=== PATIENT | female | born 1965 | race American Indian/Alaskan Native ===

== ENCOUNTER 2017-06-07 13:13 | Emergency (ER) | payer SELFPAY ==
[2017-06-07 13:39] LABS: Basophils % (Auto) 0.5 % (0.0-1.8); Eosinophils % (Auto) 1.7 % (0.0-4.3); Hematocrit 40.5 % (30.3-42.9); Mean Corpuscular HGB Conc 32 % (30-34); Mean Corpuscular Hemoglobin 29 pg (28-32); Mean Corpuscular Volume 89 fl (79-97); Platelet Count 181 K/mm3 (140-440); Red Blood Count 4.54 M/mm3 (3.65-5.03); Red Cell Distribution Width 13.5 % (13.2-15.2); White Blood Count 5.7 K/mm3 (4.5-11.0)
[2017-06-07 13:49] LABS: INR 0.89 (0.87-1.13)
[2017-06-07 13:50] LABS: Partial Thromboplastin Time 31.9 Sec. (24.2-36.6)
[2017-06-07 13:53] LABS: Anion Gap 18 mmol/L; Blood Urea Nitrogen 12 mg/dL (7-17); Calcium 9.4 mg/dL (8.4-10.2); Carbon Dioxide 23 mmol/L (22-30); Chloride 100.7 mmol/L (98-107); Glucose 88 mg/dL (65-100); Potassium 4.1 mmol/L (3.6-5.0); Sodium 138 mmol/L (137-145)
--- NOTE | 2017-06-07 14:04 | Cat Scan Report ---
CT scan of head without IV contrast: History: Neuro deficit. Findings: Ventricles are normal in size and midline in location. No evidence of acute ischemia, hemorrhage or mass. No extra axial fluid collection. Normal brainstem and cerebellum. Normal sinuses and mastoid air cells. Impression: No acute intracranial abnormality. Dr. Jimenez was informed of the findings at 1:59 PM on 06/07/17. [id number]
[2017-06-07 18:47] VITALS: BP 122/79
[2017-06-07] MEDS ORDERED: IMITREX PO ONE (20:00)
== END 2017-06-07 20:49 | disposition home or self-care (01) ==
LOC: ED 13:13
DX: M79.601 Pain in right arm (principal); R42 Dizziness and giddiness; R20.2 Paresthesia of skin
CPT/HCPCS: 36415; 70450; 80048; 82962; 84484; 85025; 85610; 85670; 85730; 93005; 93010